=== PATIENT | female | born 1985 | race Caucasian/White ===

== ENCOUNTER 2022-07-14 21:27 | Emergency (ER) | payer OTHER ==
[~2022-07-14] VITALS: Ht 167.6 cm; Wt 82.0 kg
[2022-07-14 23:34] LABS: CLARITY URINE CLEAR (CLEAR); COLOR URINE YELLOW (YELLOW); KETONES URINE TRACE (NEGATIVE); LEUKOCYTE ESTERASE URINE NEGATIVE (NEGATIVE); NITRITE URINE NEGATIVE (NEGATIVE); OCCULT BLOOD URINE NEGATIVE (NEGATIVE); PROTEIN URINE NEGATIVE (NEGATIVE); SPECIFIC GRAVITY URINE 1.025 (1.005-1.030); UROBILINOGEN URINE 0.2 E.U./dL (0.2-1.0)
[2022-07-14] MEDS ORDERED: OLANZAPINE 10MG TABLET PO STA (23:39)
[2022-07-14 23:50] LABS: *AMPHETAMINES SCREEN URINE NEGATIVE (NEGATIVE); *BARBITURATES SCREEN URINE NEGATIVE (NEGATIVE); *BENZODIAZEPINES SCREEN URINE NEGATIVE (NEGATIVE); *COCAINE SCREEN URINE NEGATIVE (NEGATIVE); CANNABINOID URINE SCREEN NEGATIVE (NEGATIVE); METHADONE URINE SCREEN NEGATIVE (NEGATIVE); OPIATES URINE SCREEN NEGATIVE (NEGATIVE); PHENCYCLIDINE URINE SCREEN NEGATIVE (NEGATIVE)
[2022-07-15 00:10] LABS: BASOPHILS % 0.6 % (0.0-2.0); EOSINOPHILS % 0.7 % (0.0-5.0); HEMATOCRIT. 38.1 % (36.0-48.0); HEMOGLOBIN. 12.9 g/dL (12.0-16.0); LYMPHOCYTES % 36.3 % (20.0-50.0); MEAN CORPUSCULAR HEMOGLOBIN 28.2 pg (28.0-32.0); MEAN CORPUSCULAR VOLUME 83.6 fL (81.0-99.0); MEAN PLATELET VOLUME 7.6 fl (7.4-10.4); MONOCYTES % 6.1 % (2.0-8.0); NEUTROPHILS % 56.3 % (40.0-76.0); PLATELET 338 x1000/uL (130-400); RED BLOOD CELL COUNT 4.56 mill/uL (4.2-5.4); RED CELL DISTRIBUTION WIDTH 16.9 % (11.6-14.6)
[2022-07-15 00:21] LABS: CHLORIDE 107 mEq/L (98-107)
[2022-07-15 00:31] LABS: ETHANOL BLOOD < 10 mg/dL
[2022-07-15 00:32] LABS: HCG SCREEN NEGATIVE
[2022-07-15] MEDS ORDERED: DIPHENHYDRAMINE 25MG CAPSULE PO ONE (22:45)
[2022-07-15] MEDS: OLANZAPINE 10MG TABLET PO SCH (23:14)
[2022-07-16] MEDS: OLANZAPINE 10MG TABLET PO SCH (15:18)
[2022-07-16] MEDS ORDERED: HALOPERIDOL LACTATE 5MG/ML VIAL IM ONE (20:15)
[2022-07-16] MEDS ORDERED: LORAZEPAM 2MG/ML CPJ IM ONE (20:15)
[2022-07-17] MEDS: OLANZAPINE 10MG TABLET PO SCH ×2 (09:07→20:26)
[2022-07-17] MEDS ORDERED: DEXTROSE 50% WATER 50ML SYRINGE IV PRN (19:00)
[2022-07-17] MEDS: BLOOD SUGAR DIAGNOSTIC STRIP TEST SCH ×2 (19:28→21:00)
[2022-07-17] MEDS: INSULIN LISPRO 100 UNITS/ML SUBCUT SCH ×2 (19:28→21:00)
[2022-07-17] MEDS ORDERED: DIPHENHYDRAMINE 50MG CAPSULE PO ONE (22:15)
[2022-07-17] MEDS ORDERED: DIPHENHYDRAMINE 25MG CAPSULE PO NR (22:15)
[2022-07-18 06:00] VITALS: BP 123/96
[2022-07-18] MEDS ORDERED: OLANZAPINE 10MG TABLET PO SCH (10:30)
== END 2022-07-18 10:32 ==
LOC: ER 21:39
DX: R45.851 Suicidal ideations (principal); E11.9 Type 2 diabetes mellitus without complications; I10 Essential (primary) hypertension; Z88.6 Allergy status to analgesic agent; Z20.822 Contact with and (suspected) exposure to COVID-19
CPT/HCPCS: 36415; 80053; 80305; 80307; 80320; 80329; 81003; 82962; 84703; 85025; 87426; 99285; C9803; J1630; J1815; J2060; Q0163; 99283; G0480